=== PATIENT | female | born 1995 | race Two or more races ===

== ENCOUNTER → 2019-08-23 | Outpatient (REF) | payer BC | LOC: M LAB LCGH 13:45 | PROVIDERS: ATTEND Obstetrics & Gynecology | DX: Z12.4 Encounter for screening for malignant neoplasm of cervix (principal) ==

== ENCOUNTER → 2023-11-26 | Outpatient (REF) | payer BC | LOC: M SFHCWAGY 13:28 | PROVIDERS: ATTEND Nurse Practitioner Family | DX: Z12.4 Encounter for screening for malignant neoplasm of cervix (principal); R87.610 Atypical squamous cells of undetermined significance on cytologic smear of cervix (ASC-US) | CPT/HCPCS: 87624; G0123 ==

== ENCOUNTER → 2023-12-29 | Outpatient (CLI) | payer BC | LOC: M WHC 07:16 | PROVIDERS: ATTEND Nurse Practitioner Family | DX: N63.10 Unspecified lump in the right breast, unspecified quadrant (principal) ==

== ENCOUNTER → 2024-09-02 | Outpatient (CLI) | payer BC ==
[2024-09-02 17:35] LABS: HEMATOCRIT 41.8 % (36.0-47.0); HEMOGLOBIN 14.1 g/dl (12.0-15.5); MEAN CORPUSCULAR HEMOGLOBIN 31.1 pg (27.0-33.0); MEAN CORPUSCULAR HGB CONC 33.7 g/dl (32.0-36.5); MEAN CORPUSCULAR VOLUME 92.3 fl (80.0-96.0); PLATELET COUNT, AUTOMATED 227 10^3/uL (150-450); RED BLOOD COUNT 4.53 10^6/uL (4.00-5.40); WHITE BLOOD COUNT 10.8 10^3/uL (4.0-10.0)
[2024-09-02 18:03] LABS: TOTAL PROTEIN,RANDOM URINE 11.8 MG/DL (0.0-14.0)
[2024-09-02 18:07] LABS: URIC ACID 3.9 MG/DL (3.1-7.8)
[2024-09-02 18:08] LABS: CREATININE,RANDOM URINE 168.4 MG/DL
[2024-09-02 18:09] LABS: LDH LACTATE DEHYDROGENASE 168 U/L (120-246)
[2024-09-02 18:10] LABS: ALT/SGPT 20 U/L (7.0-40); AST/SGOT 13 U/L (<34); BILIRUBIN,TOTAL 0.2 MG/DL (0.3-1.2); CREATININE FOR GFR 0.56 MG/DL (0.55-1.30); GLOMERULAR FILTRATION RATE > 60.0 (>60)
[2024-09-02 18:36] LABS: HIV 1&2 SCREEN NEGATIVE (NEGATIVE)
[2024-09-02 18:45] LABS: HEPATITIS C VIRUS ABY INDEX 0.06 INDEX (<0.8)
[2024-09-02 19:16] LABS: GC DNA AMPLIFICATION NEGATIVE (NEGATIVE)
== END ==
LOC: M PLALAB 14:57
PROVIDERS: ATTEND Nurse Practitioner Family
DX: Z34.80 Encounter for supervision of other normal pregnancy, unspecified trimester (principal); E66.01 Morbid (severe) obesity due to excess calories

== ENCOUNTER → 2024-09-21 | Outpatient (CLI) | payer BC | LOC: M PLALAB 11:36 | PROVIDERS: ATTEND Nurse Practitioner Family | DX: Z31.430 Encounter of female for testing for genetic disease carrier status for procreative management (principal) ==

== ENCOUNTER → 2024-10-03 | Outpatient (CLI) | payer BC ==
[2024-10-03 18:07] LABS: HEMOGLOBIN A1c 4.8 % (4.0-6.0)
== END ==
LOC: M PLALAB 16:00
PROVIDERS: ATTEND Nurse Practitioner Family
DX: Z34.80 Encounter for supervision of other normal pregnancy, unspecified trimester (principal)

== ENCOUNTER → 2024-11-14 | Outpatient (CLI) | payer BC | LOC: M WHC 06:39 | PROVIDERS: ATTEND Nurse Practitioner Family | DX: Z34.82 Encounter for supervision of other normal pregnancy, second trimester (principal) ==

== ENCOUNTER → 2024-12-01 | Outpatient (CLI) | payer BC | LOC: M WHC 08:00 | PROVIDERS: ATTEND Nurse Practitioner Family | DX: Z34.80 Encounter for supervision of other normal pregnancy, unspecified trimester (principal); Z3A.22 22 weeks gestation of pregnancy ==

== ENCOUNTER → 2024-12-01 | Outpatient (CLI) | payer BC | LOC: M WHC 08:00 | PROVIDERS: ATTEND Nurse Practitioner Family | DX: R59.0 Localized enlarged lymph nodes (principal) ==

== ENCOUNTER → 2024-12-28 | Outpatient (CLI) | payer BC ==
[2024-12-28 18:35] LABS: Trichomonas vaginalis (AMP) NOT DETECTED (NEGATIVE)
[2024-12-28 18:51] LABS: HEMATOCRIT 38.8 % (36.0-47.0); HEMOGLOBIN 12.7 g/dl (12.0-15.5); MEAN CORPUSCULAR HEMOGLOBIN 30.1 pg (27.0-33.0); MEAN CORPUSCULAR HGB CONC 32.7 g/dl (32.0-36.5); MEAN CORPUSCULAR VOLUME 91.9 fl (80.0-96.0); PLATELET COUNT, AUTOMATED 210 10^3/uL (150-450); RED BLOOD COUNT 4.22 10^6/uL (4.00-5.40); WHITE BLOOD COUNT 10.4 10^3/uL (4.0-10.0)
[2024-12-28 18:59] LABS: GC DNA AMPLIFICATION NEGATIVE (NEGATIVE)
[2024-12-28 19:24] LABS: GLUCOSE CHALLENGE TEST 1 HOUR 83 MG/DL (LESS THAN 140)
[2024-12-28 19:26] LABS: ALBUMIN 2.6 G/DL (3.2-5.2); ALKALINE PHOSPHATASE 95 U/L (35-104); ALT/SGPT 16 U/L (7.0-40); AST/SGOT 11 U/L (<34); BILIRUBIN,DIRECT < 0.1 MG/DL (<0.4); BILIRUBIN,TOTAL 0.2 MG/DL (0.3-1.2)
[2024-12-28 19:53] LABS: HIV 1&2 SCREEN NEGATIVE (NEGATIVE)
[2024-12-28 20:02] LABS: HEPATITIS C VIRUS ABY INDEX 0.03 INDEX (<0.8)
== END ==
LOC: M PLALAB 14:37
PROVIDERS: ATTEND Obstetrics & Gynecology
DX: Z34.82 Encounter for supervision of other normal pregnancy, second trimester (principal)

== ENCOUNTER → 2025-01-02 | Outpatient (CLI) | payer BC | LOC: M WHC 12:00 | PROVIDERS: ATTEND Nurse Practitioner Family | DX: Z34.80 Encounter for supervision of other normal pregnancy, unspecified trimester (principal) ==

== ENCOUNTER 2025-03-28 09:21 | Inpatient (IN) | payer BC ==
[~2025-03-28] VITALS: Ht 165.1 cm; Wt 139.8 kg
[2025-03-28] VITALS (16 sets, daily range): BP systolic 100–155; BP diastolic 52–92
[2025-03-28] MEDS ORDERED: PRENTAB9 PO (09:46)
[2025-03-28] MEDS ORDERED: ASPI-655 PO (09:46)
[2025-03-28] MEDS ORDERED: LIDOCAINE 1% MDV 20 ML VIAL INFIL PRN (10:25)
[2025-03-28] MEDS ORDERED: CARBOPROST TROMETHAMINE 250 MCG/ML AMP IM PRN (10:25)
[2025-03-28] MEDS ORDERED: OXYTOCIN DRIP 30 UNITS in IV 1 EA IV PRN (10:25)
[2025-03-28] MEDS: LR 1,000 ML IV SCH (11:03)
[2025-03-28] MEDS: miSOPROStol 50 MCG 1/2 TABLET PO SCH (11:04)
[2025-03-28] MEDS: PENICILLIN G POTASSIUM 5 MU IV 5 MU in DEXTROSE 5% (D5W) MINI-BAG PLU 100 ML IV STA (11:04)
[2025-03-28 11:24] LABS: PLATELET COUNT, AUTOMATED 168 10^3/uL (150-450)
[2025-03-28 11:50] LABS: LDH LACTATE DEHYDROGENASE 163 U/L (120-246)
[2025-03-28 11:51] LABS: ALT/SGPT 13 U/L (7.0-40); AST/SGOT 18 U/L (<34); CREATININE FOR GFR 0.51 MG/DL (0.55-1.30); GLOMERULAR FILTRATION RATE > 90.0 (>60)
[2025-03-28 11:59] LABS: TOTAL PROTEIN,RANDOM URINE 12.5 MG/DL (0.0-14.0)
[2025-03-28 12:18] LABS: HIV 1&2 SCREEN NEGATIVE (NEGATIVE)
[2025-03-28 12:26] LABS: HEPATITIS C VIRUS ABY INDEX < 0.02 INDEX (<0.8)
[2025-03-28] MEDS: PEN G POT 3,000,000 UNIT/50 ML 3,000,000 UNIT in IV 1 EA IV SCH (15:08)
[2025-03-28] MEDS ORDERED: OXYTOCIN DRIP 30 UNITS in IV 1 EA IV SCH ×2 (20:10→20:20)
[2025-03-28] MEDS ORDERED: LR 1,000 ML IV SCH (20:20)
[2025-03-29] VITALS (48 sets, daily range): BP systolic 108–163; BP diastolic 51–99; TEMP 99; O2SAT 94–97
[2025-03-29] MEDS ORDERED: EPIDURAL/PCA KEYS XX PRN (01:15)
[2025-03-29] MEDS ORDERED: LR 500 ML IV PRN (01:15)
[2025-03-29] MEDS ORDERED: diphenhydrAMINE 50 MG/ML VIAL IV PRN ×2 (01:15→16:45)
[2025-03-29] MEDS ORDERED: NALOXONE INJ 0.4 MG/1 ML VIAL IV PRN ×3 (01:15→16:45)
[2025-03-29] MEDS ORDERED: ONDANSETRON 4MG 2ML VIAL IV PRN ×2 (01:15→16:45)
[2025-03-29] MEDS ORDERED: FENTANYL 2 MCG/ML ROPIVACAINE 0.2% IN 0.9% NACL 100 ML IVBAG As Ordered ONE (01:28)
[2025-03-29] MEDS: FENTANYL/ROPIVACAINE/NACL BAG 100 ML EPIDURAL SCH (02:07)
[2025-03-29] MEDS: LACTATED RINGER'S 1000 ML IV STA (14:24)
[2025-03-29] MEDS ORDERED: LR 1,000 ML IV SCH (14:25)
[2025-03-29] MEDS: ACETAMINOPHEN 650 MG SUPP PR ONE (14:25)
[2025-03-29] MEDS ORDERED: OXYTOCIN INJ 10UNITS/ML 1ML VIAL IV PRN (14:25)
[2025-03-29] MEDS: ceFAZolin SODIUM 3 GM in DEXTROSE 5% (D5W) MINI-BAG PLU 100 ML IV ONE (14:49)
[2025-03-29] MEDS: AZITHROMYCIN INJ 500 MG, VIAL MATE ADAPTER 1 EACH in NS 250 ML IV ONE (14:49)
[2025-03-29] MEDS: BICITRA 30 ML SOLN UDC PO ONE (14:49)
[2025-03-29] MEDS: TRANEXAMIC ACID INJection 1,000 MG in NS 100 ML IV PRN (14:50)
[2025-03-29] MEDS ORDERED: OXYTOCIN INJ 10UNITS/ML 1ML VIAL As Ordered ONE (15:26)
[2025-03-29] MEDS ORDERED: LIDOCAINE 2% W/EPINEPHrine 20 ML VIAL **PRES FREE As Ordered ONE (15:26)
[2025-03-29] MEDS ORDERED: ONDANSETRON 4MG 2ML VIAL As Ordered ONE (15:26)
[2025-03-29] MEDS ORDERED: MORPHINE PRES-FREE INJ 10 MG/10 ML VIAL As Ordered ONE (15:56)
[2025-03-29] MEDS ORDERED: KETOROLAC 30 MG/ML 1 ML VIAL As Ordered ONE (15:57)
[2025-03-29 16:00] LABS: CORD GAS ABE V -1.0; CORD GAS HCO3 V 24.5 MMOL/L; CORD GAS O2 SAT V 60.2 %; CORD GAS PCO2 V 43.4 mmHg; CORD GAS PH V 7.369 UNITS; CORD GAS PO2 V 23.4 mmHg; CORD GAS SBC V 22.7 MMOL/L; CORD GAS TCO2 V 25.8 MMOL/L
[2025-03-29 16:01] LABS: CORD GAS ABE A -0.9; CORD GAS HCO3 A 25.9 MMOL/L; CORD GAS O2 SAT A 29.5 %; CORD GAS PCO2 A 50.9 mmHg; CORD GAS PH A 7.324 UNITS; CORD GAS PO2 A 14.8 mmHg; CORD GAS SBC A 22.1 MMOL/L; CORD GAS TCO2 A 27.4 MMOL/L
[2025-03-29] MEDS ORDERED: PERCOCET 5MG/325MG TAB PO PRN (16:20)
[2025-03-29] MEDS ORDERED: MOM 30 ML SUSPENSION UDC PO PRN (16:20)
[2025-03-29] MEDS ORDERED: ONDANSETRON 4MG TAB PO PRN (16:20)
[2025-03-29] MEDS ORDERED: RHOGAM 300MCG (1500IU) INJ IM SCH (16:20)
[2025-03-29] MEDS ORDERED: SIMETHICONE 80MG CHEW TAB PO PRN (16:20)
[2025-03-29] MEDS ORDERED: MEPERIDINE 25 MG/ML 1 ML VIAL IV PRN (16:45)
[2025-03-29] MEDS ORDERED: **NOTE PATIENT COMMENT** MISC XX SCH (16:45)
[2025-03-29] MEDS ORDERED: HYDROMORPHONE HCL 0.5 MG/0.5 ML SYRINGE IV PRN (16:45)
[2025-03-29] MEDS: SLF 3 ML SYR IV SCH (16:45)
[2025-03-29] MEDS ORDERED: OXYTOCIN 30UNITS IN 0.9% NaCl 500ML IV BAG As Ordered ONE (17:04)
[2025-03-29] MEDS: OXYTOCIN DRIP 30 UNITS in IV 1 EA IV SCH (17:08)
[2025-03-29] MEDS: DOCUSATE SODIUM 100 MG CAPSULE PO SCH (21:35)
[2025-03-29] MEDS: KETOROLAC 30 MG/ML 1 ML VIAL IV SCH (21:35)
[2025-03-29] MEDS: ENOXAPARIN 40 MG/0.4 ML SYRINGE (J1650 PER 10MG) SC SCH (21:36)
[2025-03-30 02:20] VITALS: BP 104/56; O2SAT 95
[2025-03-30 06:04] VITALS: BP 98/53; O2SAT 95
[2025-03-30 08:21] LABS: PLATELET COUNT, AUTOMATED 147 10^3/uL (150-450)
[2025-03-30] MEDS: PRENATAL VITAMINS CHEWABLE TABLET PO SCH (08:55)
[2025-03-30] MEDS: PERCOCET 5MG/325MG TAB PO PRN (08:55)
[2025-03-30 10:00] VITALS: BP 117/72; O2SAT 96
[2025-03-30 13:56] VITALS: BP 103/51; O2SAT 96
[2025-03-30 17:57] VITALS: BP 124/60; O2SAT 97
[2025-03-30] MEDS: IBUPROFEN 800 MG TAB PO SCH (19:07)
[2025-03-30 22:00] VITALS: BP 112/64; O2SAT 97
[2025-03-31 02:00] VITALS: BP 101/55; O2SAT 97
[2025-03-31 06:00] VITALS: BP 115/56; O2SAT 99
[2025-03-31] MEDS: MEASLES,MUMPS,RUBELLA VACCINE INJ (MMR-II) SC.IMMUN ONE (09:00)
[2025-03-31] MEDS ORDERED: IBUP80TA PO (09:16)
[2025-03-31 09:59] VITALS: BP 127/74; O2SAT 98
== END 2025-03-31 14:50 | disposition home or self-care (01) | DRG 540 ==
LOC: M LDO 09:21 → M LDI 09:57 → M OBS 03-29 18:20
PROVIDERS: ADMIT Obstetrics & Gynecology; ATTEND Obstetrics & Gynecology
PROC: 10D00Z1 Extraction of Products of Conception, Low, Open Approach (ICD-10-PCS; principal; 2025-03-29 15:06)
DX: O42.02 Full-term premature rupture of membranes, onset of labor within 24 hours of rupture (principal); O64.0XX0 Obstructed labor due to incomplete rotation of fetal head, not applicable or unspecified; O99.824 Streptococcus B carrier state complicating childbirth; Z3A.39 39 weeks gestation of pregnancy; Z79.82 Long term (current) use of aspirin; O36.63X0 Maternal care for excessive fetal growth, third trimester, not applicable or unspecified; Z37.0 Single live birth; O64.5XX0 Obstructed labor due to compound presentation, not applicable or unspecified

== ENCOUNTER → 2025-04-12 | Outpatient (REF) | payer BC ==
[~2025-04-12] MED LIST: ASPI-655 PO; IBUP80TA PO; PRENTAB9 PO
[2025-04-12 13:47] LABS: APPEARANCE, URINE CLEAR (CLEAR); BACTERIA, URINE AUTO NEGATIVE (NEGATIVE); BILIRUBIN, URINE AUTO NEGATIVE (NEGATIVE); BLOOD, URINE BLOOD 2+ (NEGATIVE); GLUCOSE, URINE (UA) AUTO NEGATIVE (NEGATIVE); KETONE, URINE AUTO NEGATIVE (NEGATIVE); LEUKOCYTE ESTERASE, URINE AUTO 1+ (NEGATIVE); NITRITE, URINE AUTO NEGATIVE (NEGATIVE); PROTEIN, URINE AUTO NEGATIVE (NEGATIVE); RBC, URINE AUTO 1 /HPF (0-3); SPECIFIC GRAVITY URINE AUTO 1.011 (1.002-1.035); SQUAMOUS EPITHELIAL CELL UR AU 1 /HPF (0-6); UROBILINOGEN, URINE AUTO 0.2 mg/dL (0.0-2.0); WBC, URINE AUTO 5 /HPF (0-3)
== END ==
LOC: M SFHCWAGY 12:45
PROVIDERS: ATTEND Obstetrics & Gynecology
DX: R30.0 Dysuria (principal)